=== PATIENT | male | born 1985 | race Caucasian/White ===

== ENCOUNTER 2018-08-26 16:27 | Emergency (ER) | payer MEDICAID, SELFPAY ==
[2018-08-26 16:33] VITALS: BP 131/84; PULSE 88; RESP 17; TEMP 36.7; O2SAT 98; BMI 21.5
[2018-08-26 16:46] VITALS: BP 126/66; PULSE 68; RESP 20; TEMP 36.6; O2SAT 100; BMI 18.7
--- NOTE | 2018-08-26 17:06 | XR_ITS ---
XR hip RT 2-3V w/pelvis HISTORY: ITS.REASON: PAIN ORDERING PHYSICIAN: PATIENT AGE: 32 years COMPARISON: None FINDINGS: Bone density is normal except there is a 5 mm round sclerotic focus with smooth margins at the right lesser trochanteric area. There is no acute fracture. The joint spaces and alignment are normal. Visualized portions of the pelvis and soft tissues are unremarkable. IMPRESSION: No acute process. Probable bone island involving the proximal right femur.
--- NOTE | 2018-08-26 17:19 | HMH.EDUTC ---
[facility] [place] Clinical Impression: Hematoma and contusion Disposition: Home, Self-Care Condition on Discharge: Good Instructions: Acetaminophen (Alternative Therapy), Easy Bruising (Alternative Therapy), Contusion, DI for Contusion, DI for Hematoma (Bruise), How To Perform RICE (Rest, Ice, Compress, Elevate), DI for Leg Pain Additional Instructions: Rest the injured area or use it less than usual. If you bruised your leg or foot, you may need crutches or a cane to help you walk. This will help you keep weight off your injured body part. Apply ice to decrease swelling and pain. Ice may also help prevent tissue damage. Use an ice pack, or put crushed ice in a plastic bag. Cover it with a towel and place it on your bruise for 15 to 20 minutes every hour or as directed. Use compression to support the area and decrease swelling. Wrap an elastic bandage around the area over the bruised muscle. Make sure the bandage is not too tight. You should be able to fit 1 finger between the bandage and your skin. Elevate (raise) your injured body part above the level of your heart to help decrease pain and swelling. Use pillows, blankets, or rolled towels to elevate the area as often as you can. Do not drink alcohol as directed. Alcohol may slow healing. Do not stretch injured muscles right after your injury. Ask your healthcare provider when and how you may safely stretch after your injury. Gentle stretches can help increase your flexibility. Rest and protect the bruised area. Put ice or a cold pack on the area for 10 to 20 minutes at a time. Prop up the bruised area on a pillow when you ice it or anytime you sit or lie down during the next 3 days. Try to keep it above the level of your heart. This will help reduce swelling. Wrapping the bruised area with an elastic bandage such as an Seven wrap will help decrease swelling. Don't wrap it too tightly, as this can cause more swelling below the affected area. Call your doctor or nurse call line now or seek immediate medical care if: You have signs of skin infection, such as: Increased pain, swelling, warmth, or redness. Red streaks leading from the area. Pus draining from the area. A fever. be sure to contact your doctor or nurse call line if: The bruise gets bigger or becomes more painful. You was given out patient order for venous doppler, they will call you in the morning with appointment time, after getting the doppler follow up immediately with family doctor for results and further treatment *Straight to ER if any life threatening symptoms Return if needed Referrals: Wendy Moore APRN [Nurse Practitioner] - (Follow up with Family doctor after venous doppler) Time of Disposition: 18:04 Medical Decision Making - El Inquiry Pt receiving controlled substance: No El was queried for this patient: No Vital Signs: 08/26/18 16:33 08/26/18 16:46 08/26/18 17:55 Temperature 98.0 F 98 F 98 F Temperature Source Oral Oral Oral Pulse Rate 65 Pulse Rate [Left Radial] 88 68 Respiratory Rate 17 20 18 Blood Pressure 126/66 Blood Pressure [Right Arm] 131/84 126/66 Blood Pressure Mean [Right Arm] 99 86 Blood Pressure Source [Right Arm] Automatic Cuff Blood Pressure Position [Right Arm] Sitting 02 Sat by Pulse Oximetry 98 100 Oxygen Delivery Method Room Air Room Air Room Air Orders (Tests/Meds): ORDERS Category Date Time Status Hip XR right minimum 2 views [XR hip RT 2-3V w/pelvis] Exams 08/26/18 17:06 Taken Stat - Radiology Data #1 Image(s): Hip Image Reviewed: Yes I reviewed the patient's radiology image Preliminary Findings: No Fracture Seen - Reevaluation(s) Time: 17:55 Reevaluation #1: out patient order given for venous doppler right lower extremity order faxed to resp. [facility] [place] HPI - General Stated complaint: Pain in R leg Time Seen by Provider: 08/26/18 16:50 Mode of Arrival: Ambulatory Source of Information: Patient Limitations: No Li
[2018-08-26 17:55] VITALS: BP 126/66; PULSE 65; RESP 18; TEMP 36.6; O2SAT 100
== END 2018-08-26 18:21 | disposition home or self-care (01) ==
LOC: UTC 18:21
PROVIDERS: Emergency Provider Nurse Practitioner
DX: S70.11XA Contusion of right thigh, initial encounter (principal); X50.0XXA Overexertion from strenuous movement or load, initial encounter; Y92.69 Other specified industrial and construction area as the place of occurrence of the external cause; Y99.0 Civilian activity done for income or pay; F17.210 Nicotine dependence, cigarettes, uncomplicated
CPT/HCPCS: 73502; 99201

== ENCOUNTER → 2018-08-27 15:07 | Outpatient (CLI) | payer MEDICAID, SELFPAY ==
--- NOTE | 2018-08-27 15:14 | NVE_ITS ---
Venous Exam Indications: 729.5 Pain in limb. IMPRESSIONS 1. There is no evidence of significant Reflux. 2. No evidence of deep or superficial vein thrombosis involving the right lower extremity History: Risk factors: Pt c/o possibly pulling a muscle in his thigh several days ago. Now has bruising medial thigh. Right lower extremity venous duplex evaluation. Doppler flow study including spectral analysis, color and roy scale imaging. Location: Vascular laboratory. Patient status: Outpatient. Tables: Venous flow and imaging: + +-------+ + Location Overall Flow properties + +-------+ + Right common femoral Patent Normal phasicity; spontaneous; normal augmentation; compressible + +-------+ + Right saphenofemoral junction Patent Compressible + +-------+ + Right profunda femoral Patent Compressible + +-------+ + Right femoral Patent Normal phasicity; spontaneous; normal augmentation; compressible + +-------+ + Right greater saphenous Patent Normal phasicity; spontaneous; normal augmentation; compressible + +-------+ + Right popliteal Patent Normal phasicity; spontaneous; normal augmentation; compressible + +-------+ + Right posterior tibial Patent Compressible + +-------+ + Right peroneal Patent Compressible + +-------+ + Right gastrocnemius Patent Compressible + +-------+ + Right soleal Patent Compressible + +-------+ + (Report amended ) Electronically signed by: Carlos Tinajero [id number]
== END ==
PROVIDERS: PCP Emergency Medicine; Visit Provider Nurse Practitioner
DX: M79.661 Pain in right lower leg (principal); M79.81 Nontraumatic hematoma of soft tissue
CPT/HCPCS: 93971

== ENCOUNTER 2020-10-17 10:32 | Emergency (ER) | payer MEDICAID, SELFPAY ==
[2020-10-17 11:25] VITALS: BP 150/73; PULSE 80; RESP 18; TEMP 37; O2SAT 99; BMI 22.3
--- NOTE | 2020-10-17 11:51 | HMH.EDUTC ---
[facility] [place] Disposition Clinical Impression: Encounter for laboratory testing for COVID-19 virus Sinusitis Qualifiers: Sinusitis location: unspecified location Chronicity: unspecified Qualified Code(s): J32.9 - Chronic sinusitis, unspecified Disposition: Home, Self-Care Condition on Discharge: Good Instructions: DI for COVID-19 (Suspected or Confirmed ), Coronavirus Disease 2019, Preventing the Spread of Coronavirus Discharge Instructions Additional Instructions: *Monitor Temp, Over the counter Motrin or Tylenol as directed/as needed Tylenol every 4 hours and Motrin every 6 hours (as long as your family doctor has told you that you can take it) for fever or pain. and straight to ER if unable to lower temp less than 101.0 after medication given *Warm salt water gargles may help to soothe the throat *Throat Lozenges *Warm fluids like tea with honey may help to soothe the throat *Sleep elevated *Humidifier/Vaporizer Follow up IMMEDIATELY for new or worsening symptoms or no Noticeable improvement over the next 48-72 hours. 911 for difficulty breathing or swallowing You were tested for today for COVID19 your test result should be back in the next 24-48 hours, you may call to the [facility] to see if your test results are back in the next 48 hours [phone] [facility] hours are 9am-9pm You was given a handout with instructions for Self Quarantine and Self isolation for while you wait on test results and what to do if they are positive If you are positive the Health Dept will be contacting you also Make sure to take your Vitamins Vit. C Vit D and Zinc if you can take them Prescriptions: Fluticasone Propionate [Flonase 50mcg nasal spray 16gm] 1 spr NS DAILY #1 ml Transmission Status: Pending to [facility] Azithromycin [Z-Reji 250mg Tab] 250 mg PO DIRECTED #6 tab Transmission Status: Pending to [facility] Referrals: Provider,Referral, MD [Primary Care Provider] - As needed Forms: Work/School Release Time of Disposition: 12:00 Medical Decision Making - El Inquiry Pt receiving controlled substance: No El was queried for this patient: No Vital Signs: 10/17/20 11:25 Temperature 98.6 F Temperature Source Oral Pulse Rate [Left Brachial] 80 Respiratory Rate 18 Blood Pressure [Left Arm] 150/73 H Blood Pressure Mean [Left Arm] 98 Blood Pressure Source [Left Arm] Automatic Cuff Blood Pressure Position [Left Arm] Sitting 02 Sat by Pulse Oximetry 99 Oxygen Delivery Method Room Air Orders (Tests/Meds): ORDERS Category Date Time Status Covid-19 Nasal PCR ([facility]) Routine Lab 10/17/20 11:35 Received [facility] [place] HPI - General Stated complaint: Runny nose; loss of taste smell Time Seen by Provider: 10/17/20 11:51 Mode of Arrival: Ambulatory Source of Information: Patient Limitations: No Limitations Description of Symptoms (Recalled from Triage Doc. by RN): PATIENT C/O RUNNY NOSE, CHILLS, FEVER, COUGH, AND LOSS OF TASTE AND SMELL X 1 WEEK HEENT Symptoms (Recalled from RN notes): Yes Resp Symptoms (Recalled from RN notes): Yes Skin Symptoms (Recalled from RN notes): No MS Symptoms (Recalled from RN notes): No Functional Status (Recalled from RN notes): WNL - History of Present Illness Provider Complaint: Patient state that he has been having sinus pain and pressure for over a week not been able to taste or smell anything and having fever, chills, body aches and cough States that today he was able to taste again but still having sinus pressure and not sure if he may have sinus infection or COVID - Related Data Previous Rx's Medication Instructions Recorded Azithromycin [Z-Reji 250mg Tab] 250 mg PO DIRECTED #6 tab 10/17/20 Fluticasone Propionate [Flonase 1 spr NS DAILY #1 ml 10/17/20 50mcg nasal spray 16gm] Allergies Allergy/AdvReac Type Severity Reaction Status Date / Time No Known Allergies Allergy Verified 02/13/18 14:04 - Worker's Comp Is this a Worker's Comp case?: No [facility]
[2020-10-17 11:58] VITALS: BP 150/73; PULSE 80; RESP 18; TEMP 37; O2SAT 99
== END 2020-10-17 12:07 | disposition home or self-care (01) ==
PROVIDERS: Emergency Provider Nurse Practitioner
DX: J32.9 Chronic sinusitis, unspecified (principal); Z20.822 Contact with and (suspected) exposure to COVID-19; F17.210 Nicotine dependence, cigarettes, uncomplicated
CPT/HCPCS: 99202; G0463; U0003

== ENCOUNTER 2021-06-23 16:17 | Emergency (ER) | payer MEDICAID, SELFPAY ==
[2021-06-23 18:05] LABS: UTC Influenza A Antigen Negative (Negative); UTC Influenza B Antigen Negative (Negative)
[2021-06-23 18:06] VITALS: BP 145/98; PULSE 73; RESP 19; TEMP 36.6; O2SAT 98; BMI 24.4
--- NOTE | 2021-06-23 18:27 | HMH.EDUTC ---
[facility] [place] Clinical Impression: Viral syndrome Disposition: Home, Self-Care Condition on Discharge: Good Instructions: DI for Viral Syndrome Additional Instructions: Drink extra fluids with and between meals. If you have difficulty drinking, try very small amounts of water or suck on ice chips. ? Avoid fruit juices, as these do not replace minerals and can actually increase diarrhea. ? Children and adults can use sports drinks to replenish electrolytes. Younger children and infants should use products formulated for children, like oral rehydration solutions. ? Eat food in small amounts and let your stomach recover. ? Get lots of rest. You may feel tired or weak. ? No greasy or fried foods for the next 24-48 hours BRAT diet Bananas Rice Apples and [place] ? Make sure to drink plenty of liquids ? Return if needed ? Straight to ER if any life threatening symptoms ? Zofran as prescribed ? Follow up with family doctor in the next 48-72 hours if no improvement or any worsening of symptoms Referrals: Fermin Evans MD [Primary Care Provider] - As needed Forms: Work/School Release Time of Disposition: 18:44 Medical Decision Making - El Inquiry Pt receiving controlled substance: No El was queried for this patient: No Vital Signs: 06/23/21 18:06 Temperature 97.8 F Temperature Source Oral Pulse Rate [Left] 73 Respiratory Rate 19 Blood Pressure [Right Arm] 145/98 H Blood Pressure Mean [Right Arm] 113 02 Sat by Pulse Oximetry 98 - Lab Data Lab results reviewed: Yes: I reviewed the patient's lab results. Lab Results 06/23/21 17:52: Influenza Type A Ag Negative, Influenza Type B Ag Negative Orders (Tests/Meds): ORDERS Category Date Time Status Covid-19 Nasal PCR ([facility]) Routine Lab 06/23/21 17:53 Re[place] [facility] [place] - General Stated complaint: vomiting Time Seen by Provider: 06/23/21 18:27 Mode of Arrival: Ambulatory Source of Information: Patient Limitations: No Limitations Description of Symptoms (Recalled from Triage Doc. by RN): pt c/o n/v. HEENT Symptoms (Recalled from RN notes): No Resp Symptoms (Recalled from RN notes): No Skin Symptoms (Recalled from RN notes): No MS Symptoms (Recalled from RN notes): No Functional Status (Recalled from RN notes): wnl - History of Present Illness Provider Complaint: Patient states that he was at work this morning and had some N/V States that he has been feeling achy and having chills but N/V has since stopped States that he is feeling a little better now and was worried that he may have the flu - Related Data Allergies Allergy/AdvReac Type Severity Reaction Status Date / Time No Known Allergies Allergy Verified 04/26/21 13:06 - Worker's Comp Is this a Worker's Comp case?: No [facility] History - Hepatitis A Screen Drug use history?: No High risk sexual behaviors?: No History of sexually transmitted infection?: No Currently employed?: No Childcare worker?: No Do you have indoor plumbing?: Yes Do you have electricity?: Yes Attestation statement:: This patient has been screened for Hepatitis A risk factors. I have reviewed the patient's past medical history: Yes Laterality Cases: Bilateral: Myringotomy (Ear Tubes) Amputation: No Fractures: No - Social History Smoking Status: Current every day smoker Tobacco Type: cigarettes # Packs/Day (cigarettes): 1 Alcohol Intake: never Substance Use Type: former substance user, heroin, marijuana, crack/cocaine, opiates, prescription drug Occupational Status: employed Family Hx:: Heart Attack ROS Obtained: Yes All systems reviewed & no additional complaints, Yes Systems reviewed as appropriate & no additional complaints - Constitutional Constitutional: Reports system reviewed and no additional complaints, except as docu, Reports body ache, Reports chills, Denies fever(s) - ENT Ears, Nose, Mouth, and Throat: Reports system reviewed and no additional complaints, except as docu - [facility]
[2021-06-23 18:49] VITALS: BP 145/98; PULSE 73; RESP 19; TEMP 36.6
== END 2021-06-23 18:52 | disposition home or self-care (01) ==
PROVIDERS: Emergency Provider Nurse Practitioner; PCP Emergency Medicine
DX: B34.9 Viral infection, unspecified (principal); R11.10 Vomiting, unspecified; F17.210 Nicotine dependence, cigarettes, uncomplicated
CPT/HCPCS: 87804; 99212; C9803; G0463; U0003; U0005

== ENCOUNTER 2022-04-11 16:24 | Emergency (ER) | payer MEDICAID, SELFPAY ==
[2022-04-11 16:49] VITALS: BP 132/86; PULSE 86; RESP 18; TEMP 36.9; O2SAT 98; BMI 20.2
--- NOTE | 2022-04-11 16:57 | EXP.UTC ---
Discharge Plan Disposition Patient Disposition: Home, Self-Care Condition: Good Referrals Follow up/Referrals: Fermin Evans MD [Primary Care Provider] - See instructions Activity Restrictions/Add. Instructions Additional Instructions/Restrictions: Over the counter Motrin and muscle rubs may help with muscle pain Follow up with your Family Doctor if no improvment or any worsening of symptoms Return if neede straight to ER if any life threatening symptoms Soaks in Warm water and epson salt may help with muscle and joint pain Clinical Impressions Clinical Impression: Muscle pain Stand Alone Forms Stand Alone Forms: Work/School Release Instructions Patient Instructions: DI for Chronic Pain -- Adult, Ibuprofen Discharge ED Provider: Love Laboy [facility] General Stated complaint: back and L wrist pain Mode of Arrival: Ambulatory Source of Information: Patient Limitations: No Limitations Time Seen by Provider: 04/11/22 16:58 Description of Symptoms (Recalled from Triage Doc. 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 and yesterday he was having pain in his left hand/wrist and upper back and had to leave work Denies injury States he took some OTC medication and used muscle rub and it felt better States that today he is not having any pain at all but needed a work note where he had to leave work yesterday Related Data Allergies Allergy/AdvReac Type Severity Reaction Status Date / Time No Known Allergies Allergy Verified 04/26/21 13:06 Worker's Comp Is this a Worker's Comp case?: No [facility] Disclaimer: The information contained in this section may have been updated after the patient was seen, as this information can be updated by other users. Social History Smoking Status: Current every day smoker tobacco type: cigarettes packs per day: 1 alcohol intake: never substance use type: former substance user, marijuana, crack/cocaine, heroin, opiates and prescription drug current occupational status: employed Travel in the last 8 weeks: None ROS Obtained: Yes All systems reviewed & no additional complaints except as documented and Yes Systems reviewed as appropriate & no additional complaints except as documented Constitutional Constitutional: Reports system reviewed and no additional complaints, except as documented and Reports as per HPI ENT Ears, Nose, Mouth, and Throat: Reports system reviewed and no additional complaints, except as documented and Reports as per HPI Cardiovascular Cardiovascular: Reports system reviewed and no additional complaints, except as documented and Reports as per HPI Respiratory Respiratory: Reports system reviewed and no additional complaints, except as documented and Reports as per HPI Musculoskeletal Musculoskeletal: Reports system reviewed and no additional complaints, except as documented and Reports as per HPI Comments: Pain in left hand/wrist yesterday and upper back relieved after OTC medication and muscle rub denies pain at this time Physical Exam General General appearance: alert and in no apparent distress Respiratory Respiratory exam: Present normal lung sounds bilaterally; Absent respiratory distress or wheezes Cardiovascular Cardiovascular exam: Present regular rate, normal rhythm and normal heart sounds Abdominal Exam Abdominal exam: Present soft and normal bowel sounds; Absent distention or tenderness Extremities Exam Extremities exam: Present normal inspection, full ROM, normal capillary refill and other (pain in left wrist/hand yesterday no pain now ); Absent tenderness, edema or joint swelling Expanded Upper Extremity Exam Left
[2022-04-11 17:14] VITALS: BP 132/86; PULSE 86; RESP 18; TEMP 36.9; O2SAT 98
== END 2022-04-11 17:15 | disposition home or self-care (01) ==
PROVIDERS: Emergency Provider Nurse Practitioner; PCP Emergency Medicine
DX: M79.10 Myalgia, unspecified site (principal)
CPT/HCPCS: 99212; G0463